=== PATIENT | male | born 1960 | race Caucasian/White ===

== ENCOUNTER 2016-07-02 18:12 | Emergency (ER) | payer SELFPAY ==
[~2016-07-02] VITALS: Ht 175.3 cm; Wt 80.0 kg
[~2016-07-02 18:12] MED LIST: DILA100C PO; LEVE500 PO
[2016-07-02 19:02] VITALS: BP 138/52; PULSE 60; RESP 14; TEMP 98.9; O2SAT 97
--- NOTE | 2016-07-02 20:10 | PD ---
HPI Chief Complaint: Alcohol/Drug Intoxication Time Seen by Provider: 19:40 Travel History International Travel<30 days: No Contact w/Intl Traveler<30days: No Traveled to known affect area: No History of Present Illness HPI Patient is a 56-year-old male who presents emergency department for alcohol intoxication. According to EMS the patient was found on the ground, by police, intoxicated. Therefore, they called EMS to bring the patient to the emergency department. The patient does admit to drinking alcohol earlier today , was unable to quantify the amount of alcohol. He denies any physical complaints. He denies any suicidal or homicidal ideation. He denies any hallucinations or delusions. PFSH Past Medical History Arthritis: Yes (FEET AND HANDS) Asthma: No Autoimmune Disease: No Blood Disorders: No Anxiety: No Depression: No Heart Rhythm Problems: No Cancer: No Cardiovascular Problems: Yes High Cholesterol: No Chemotherapy: No Chest Pain: No Congestive Heart Failure: No COPD: No Cerebrovascular Accident: No Diabetes: No Diminished Hearing: No Endocrine: No Gastrointestinal Disorders: No GERD: No Glaucoma: No Genitourinary: No Headaches: No Hepatitis: No Hiatal Hernia: No Hypertension: Yes Immune Disorder: No Kidney Stones: No Musculoskeletal: Yes Neurologic: Yes (TBI 1999) Psychiatric: No Reproductive: No Respiratory: No Immunizations Current: Yes Migraines: No Myocardial Infarction: No Radiation Therapy: No Renal Failure: No Seizures: Yes (ETOH WITHDRAWL ) Sickle Cell Disease: No Sleep Apnea: No Thyroid Disease: No Ulcer: No Past Surgical History Abdominal Surgery: No AICD: No Appendectomy: Yes Arteriovenous Shunt: Yes Cardiac Surgery: No Cholecystectomy: No Ear Surgery: No Endocrine Surgery: No Eye Surgery: No Genitourinary Surgery: No Gynecologic Surgery: No Insulin Pump: No Joint Replacement: No Neurologic Surgery: No Oral Surgery: Yes (FX JAW X 2 2001 AND 2006) Pacemaker: No Thoracic Surgery: No Tonsillectomy: Yes Other Surgery: Yes Social History Alcohol Use: No Tobacco Use: Yes (1 PACK PER DAY) Substance Use: No Allergies-Medications (Allergen,Severity, Reaction): Coded Allergies: No Known Allergies (Verified , 12/28/15) Reported Meds & Prescriptions Reported Meds & Active Scripts Active Keppra (Levetiracetam) 500 Mg Tab 500 Mg PO BID Reported Dilantin (Phenytoin Extended) 100 Mg Cap Unknown Dose PO BID Review of Systems Except as stated in HPI: all other systems reviewed are Neg HENT: No: Lightheadedness Cardiovascular: No: Chest Pain or Discomfort Respiratory: No: Shortness of Breath Gastrointestinal: No: Nausea, Vomiting, Abdominal Pain Neurologic: Positive: Seizures, No: Headache, Change in Mentation Psychiatric: Positive: Substance Abuse (alcohol abuse), No: Suicidal Ideations , Homicidal Ideation Physical Exam Narrative GENERAL: Awake, alert, pleasant 56-year-old male who appears his stated age and is in no acute respiratory distress. SKIN: Warm and dry. HEAD: Atraumatic. Normocephalic. No visible hematoma. EYES: Pupils equal and round. No scleral icterus. ENT: No nasal bleeding or discharge. Mucous membranes pink and moist. Breath smells of alcohol. NECK: Trachea midline. No JVD. CARDIOVASCULAR: Regular rate and rhythm. No murmur appreciated. RESPIRATORY: No accessory muscle use. Clear to auscultation. Breath sounds equal bilaterally. GASTROINTESTINAL: Abdomen soft, non-tender, nondistended. No rebound tenderness. MUSCULOSKELETAL: No obvious deformities. No clubbing. No cyanosis. No edema. NEUROLOGICAL: Awake and alert. No obvious cranial nerve deficits. Motor grossly within normal limits. Normal speech. Nonfocal. PSYCHIATRIC: Appropriate mood and affect; insight and judgment normal. Data Data Last Documented VS Vital Signs Date Time Temp Pulse Resp B/P Pulse Ox O2 Delivery O2 Flow Rate FiO2 07/03/16 06:52 63 16 110/72 95 Room Air 07/02/16 19:02 98.9 Orders Basic Metabolic Panel (Bmp) (07/02/16 19:40) Alcohol (Ethanol) (07/02/16 19:40) Phenytoin (Dilantin) (07/02/16 20:10) Ct Brain W/O Iv Contrast(Rout) (07/02/16 ) Lorazepam Inj (Ativan Inj) (07/03/16 00:00) ^ Sitter (07/02/16 23:59) Restraints Non-Violent ERICA.Q3H (07/03/16 04:30) Labs Laboratory Tests Test 07/02/16 20:20 Sodium Level 142 MEQ/L Potassium Level 4.2 MEQ/L Chloride Level 108 MEQ/L Carbon Dioxide Level 25.6 MEQ/L Anion Gap 8 MEQ/L Blood Urea Nitrogen 7 MG/DL Creatinine 0.96 MG/DL Estimat Glomerular Filtration 81 ML/MIN Rate Random Glucose 89 MG/DL Calcium Level 8.9 MG/DL Phenytoin (Dilantin) Level LESS THAN 0.4 MCG/ML Ethyl Alcohol Level 342 MG/DL MDM Medical Decision Making Medical Screen Exam Complete: Yes Emergency Medical Condition: Yes Medical Record Reviewed: Yes Interpretation(s) CT the brain reveals chronic changes, no acute findings. Laboratory Tests Test 07/02/16 20:20 Sodium Level 142 MEQ/L Potassium Level 4.2 MEQ/L Chloride Level 108 MEQ/L Carbon Dioxide Level 25.6 MEQ/L Anion Gap 8 MEQ/L Blood Urea Nitrogen 7 MG/DL Creatinine 0.96 MG/DL Estimat Glomerular Filtration 81 ML/MIN Rate Random Glucose 89 MG/DL Calcium Level 8.9 MG/DL Phenytoin (Dilantin) Level LESS THAN 0.4 MCG/ML Ethyl Alcohol Level 342 MG/DL Differential Diagnosis Differential diagnosis includes alcohol intoxication, Dilantin toxicity, hyponatremia, intracranial hemorrhage, polysubstance abuse, delirium. Narrative Course Labs were drawn and sent. Alcohol level, BMP, Dilantin level were sent to lab. The patient was monitored in the emergency department. I reviewed the patient 's EMR, he does have a history of subdural hemorrhage in the past, therefore, CT of the brain was ordered. CT brain is negative. Alcohol level is 342. Patient be discharged when he is able to ambulate and has a safe disposition home. Diagnosis Primary Impression: Alcohol intoxication Qualified Code: F10.120 - Alcohol intoxication, uncomplicated Patient Instructions: General Instructions Additional Instructions: Decrease alcohol intake. Follow-up with a primary physician. Return if symptoms worsen or progress. Med/Other Pt SpecificInfo: No Change to Meds Disposition: 01 DISCHARGE HOME Condition: Stable Burak Murillo MD Jul 02, 2016 20:10
--- NOTE | 2016-07-02 20:53 | RADRPT ---
EXAM DATE/TIME: 07/02/2016 20:26 [facility] COMPARISON: No previous studies available for comparison. INDICATIONS : Altered mental status; ETOH RADIATION DOSE: 56.35 CTDIvol (mGy) MEDICAL HISTORY : Hypertension. SURGICAL HISTORY : Shunt ENCOUNTER: Initial ACUITY: 1 day PAIN SCALE: Non-responsive LOCATION: cranial TECHNIQUE: Multiple contiguous axial images were obtained of the head. Using automated exposure control and adj ustment of the mA and/or kV according to patient size, radiation dose was kept as low as reasonably a chievable to obtain optimal diagnostic quality images. FINDINGS: Comparison is April 2016. There are dense calcifications in the basal ganglia and dentate nuclei b ilaterally. Stable encephalomalacia noted in the frontal lobes. No intracranial mass, hemorrhage or s hift. No hydrocephalus. No abnormal extra-axial fluid collections. Healing left maxillary sinus fract ure and nasal bone fractures. CONCLUSION: 1. No acute intracranial abnormalities. Stable intracranial calcifications as above and frontal encep halomalacia. Sd Vazquez MD on July 02, 2016 at 20:50 Board Certified Radiologist. This report was verified electronically.
[2016-07-02 21:36] LABS: BICARBONATE 25.6 MEQ/L (21.0-32.0); POTASSIUM 4.2 MEQ/L (3.5-5.1)
[2016-07-03] MEDS ORDERED: LORazepam 2 MG/ML VIAL IM ONE
--- NOTE | 2016-07-03 00:03 | PD ---
Physical Exam Time Seen by Provider: 00:00 Data Data Last Documented VS Vital Signs Date Time Temp Pulse Resp B/P Pulse Ox O2 Delivery O2 Flow Rate FiO2 07/03/16 06:52 63 16 110/72 95 Room Air 07/02/16 19:02 98.9 Orders Basic Metabolic Panel (Bmp) (07/02/16 19:40) Alcohol (Ethanol) (07/02/16 19:40) Phenytoin (Dilantin) (07/02/16 20:10) Ct Brain W/O Iv Contrast(Rout) (07/02/16 ) Lorazepam Inj (Ativan Inj) (07/03/16 00:00) ^ Sitter (07/02/16 23:59) Restraints Non-Violent ERICA.Q3H (07/03/16 04:30) Labs Laboratory Tests Test 07/02/16 20:20 Sodium Level 142 MEQ/L Potassium Level 4.2 MEQ/L Chloride Level 108 MEQ/L Carbon Dioxide Level 25.6 MEQ/L Anion Gap 8 MEQ/L Blood Urea Nitrogen 7 MG/DL Creatinine 0.96 MG/DL Estimat Glomerular Filtration 81 ML/MIN Rate Random Glucose 89 MG/DL Calcium Level 8.9 MG/DL Phenytoin (Dilantin) Level LESS THAN 0.4 MCG/ML Ethyl Alcohol Level 342 MG/DL MDM Medical Record Reviewed: Yes Supervised Visit with ROGER: No Narrative Course I have been asked to come and examine this patient for increasingly combative behavior. This patient was previously seen by Dr. Murillo for alcohol intoxication. His lab work and imaging studies have been reviewed. His alcohol level is 342. His CT of the brain reveals no acute abnormalities. On examination he is very hostile and aggressive necessitating the use of restraints. He will be given Ativan. A sitter has been ordered. The patient will be monitored closely. This patient eventually calmed down and he is going to be discharged when he is clinically sober. Diagnosis Primary Impression: Alcohol intoxication Qualified Code: F10.120 - Alcohol intoxication, uncomplicated Additional Instruction: Decrease alcohol intake. Follow-up with a primary physician. Return if symptoms worsen or progress. Disposition: 01 DISCHARGE HOME Condition: Stable Salomon Wilkinson Jul 03, 2016 00:03
[2016-07-03 00:29] VITALS: BP 112/66; PULSE 66; RESP 16; O2SAT 97
[2016-07-03 06:52] VITALS: BP 110/72; PULSE 63; RESP 16; O2SAT 95
== END 2016-07-03 10:11 | disposition home or self-care (01) ==
LOC: NEDAMB 18:12 → NEPA 07-03 10:11
DX: F10.120 Alcohol abuse with intoxication, uncomplicated (principal); Y90.8 Blood alcohol level of 240 mg/100 ml or more
CPT/HCPCS: 70450; 80048; 80185; 80320; 96372; 99285; J2060

== ENCOUNTER 2016-07-09 15:27 | Emergency (ER) | payer SELFPAY ==
[~2016-07-09] VITALS: Ht 165.1 cm; Wt 70.0 kg
[2016-07-09] MEDS ORDERED: SODIUM CHLORIDE 0.9% FLUSH 5 ML FLUSH IVF PRN (15:30)
[2016-07-09] MEDS ORDERED: LORazepam 2 MG/ML VIAL IVS ONE (15:30)
[2016-07-09 15:33] VITALS: BP 136/71; PULSE 70; RESP 18; TEMP 98.2; O2SAT 98
--- NOTE | 2016-07-09 15:37 | PD ---
HPI Chief Complaint: Seizure Time Seen by Provider: 15:30 Travel History International Travel<30 days: No Contact w/Intl Traveler<30days: No History of Present Illness HPI Patient is a 56-year-old male alcoholic frequent or ER here for reported seizure. Patient was reportedly riding a city bus when bystanders stated that he had a several minute generalized tonic-clonic type seizure. He shouldn't somewhat cantankerous for EMS consistent with postictal phase initially not alert to himself or place but normalizing throughout transport. Blood glucose in the high 60s. Patient does not know why he is here and denies any complaints. He does not believe he's had seizures before, but per chart review he has certainly had seizures previously. He has been chronically noncompliant with phenytoin. PFSH Past Medical History Arthritis: Yes (FEET AND HANDS) Asthma: No Autoimmune Disease: No Blood Disorders: No Anxiety: No Depression: No Heart Rhythm Problems: No Cancer: No Cardiovascular Problems: Yes High Cholesterol: No Chemotherapy: No Chest Pain: No Congestive Heart Failure: No COPD: No Cerebrovascular Accident: No Diabetes: No Diminished Hearing: No Endocrine: No Gastrointestinal Disorders: No GERD: No Glaucoma: No Genitourinary: No Headaches: No Hepatitis: No Hiatal Hernia: No Hypertension: Yes Immune Disorder: No Kidney Stones: No Musculoskeletal: Yes Neurologic: Yes (TBI 1999) Psychiatric: No Reproductive: No Respiratory: No Immunizations Current: Yes Migraines: No Myocardial Infarction: No Radiation Therapy: No Renal Failure: No Seizures: Yes (ETOH WITHDRAWL ) Sickle Cell Disease: No Sleep Apnea: No Thyroid Disease: No Ulcer: No Past Surgical History Abdominal Surgery: No AICD: No Appendectomy: Yes Arteriovenous Shunt: Yes Cardiac Surgery: No Cholecystectomy: No Ear Surgery: No Endocrine Surgery: No Eye Surgery: No Genitourinary Surgery: No Gynecologic Surgery: No Insulin Pump: No Joint Replacement: No Neurologic Surgery: No Oral Surgery: Yes (FX JAW X 2 2001 AND 2006) Pacemaker: No Thoracic Surgery: No Tonsillectomy: Yes Other Surgery: Yes Social History Alcohol Use: Yes Tobacco Use: Yes (1 PACK PER DAY) Substance Use: No (DENIES) Allergies-Medications (Allergen,Severity, Reaction): Coded Allergies: No Known Allergies (Verified , 07/09/16) Reported Meds & Prescriptions Reported Meds & Active Scripts Active Keppra (Levetiracetam) 500 Mg Tab 500 Mg PO BID Reported Dilantin (Phenytoin Extended) 100 Mg Cap Unknown Dose PO BID Review of Systems ROS Limitations: Altered Mental Status, Poor Historian Physical Exam Exam Limitations: Altered Mental Status, Poor Historian Narrative GENERAL: middle-aged male disheveled, smelling of alcohol in no acute distress SKIN: Warm and dry. HEAD: Atraumatic. Normocephalic. EYES: Pupils equal and round. No scleral icterus. No injection or drainage. ENT: No nasal bleeding or discharge. Mucous membranes pink and moist.no bites the tongue. NECK: supple CARDIOVASCULAR: Regular rate and rhythm. No murmur appreciated. RESPIRATORY: No accessory muscle use. Clear to auscultation. Breath sounds equal bilaterally. GASTROINTESTINAL: Abdomen soft, non-tender, nondistended. MUSCULOSKELETAL: No obvious deformities. No edema. NEUROLOGICAL: Awake and alert3 but confused about historical events. No tremor. No obvious cranial nerve deficits. Motor grossly within normal limits. Normal speech. Data Data Last Documented VS Vital Signs Date Time Temp Pulse Resp B/P Pulse Ox O2 Delivery O2 Flow Rate FiO2 07/09/16 15:40 84 16 98 Room Air 07/09/16 15:33 98.2 136/71 Orders Complete Blood Count With Diff (07/09/16 15:30) Basic Metabolic Panel (Bmp) (07/09/16 15:30) Alcohol (Ethanol) (07/09/16 15:30) Ecg Monitoring (07/09/16 15:30) Iv Access Insert/Monitor (07/09/16 15:30) Oximetry (07/09/16 15:30) Sodium Chloride 0.9% Flush (Ns Flush) (07/09/16 15:30) Lorazepam Inj (Ativan Inj) (07/09/16 15:30) Chlordiazepoxide (Librium) (07/09/16 16:30) Labs Laboratory Tests Test 07/09/16 15:30 White Blood Count 5.3 TH/MM3 Red Blood Count 4.77 MIL/MM3 Hemoglobin 12.3 GM/DL Hematocrit 38.0 % Mean Corpuscular Volume 79.7 FL Mean Corpuscular Hemoglobin 25.9 PG Mean Corpuscular Hemoglobin 32.5 % Concent Red Cell Distribution Width 20.2 % Platelet Count 221 TH/MM3 Mean Platelet Volume 8.2 FL Neutrophils (%) (Auto) 65.8 % Lymphocytes (%) (Auto) 25.0 % Monocytes (%) (Auto) 6.5 % Eosinophils (%) (Auto) 2.2 % Basophils (%) (Auto) 0.5 % Neutrophils # (Auto) 3.5 TH/MM3 Lymphocytes # (Auto) 1.3 TH/MM3 Monocytes # (Auto) 0.3 TH/MM3 Eosinophils # (Auto) 0.1 TH/MM3 Basophils # (Auto) 0.0 TH/MM3 CBC Comment DIFF FINAL Differential Comment Sodium Level 137 MEQ/L Potassium Level 4.1 MEQ/L Chloride Level 102 MEQ/L Carbon Dioxide Level 27.1 MEQ/L Anion Gap 8 MEQ/L Blood Urea Nitrogen 9 MG/DL Creatinine 0.97 MG/DL Estimat Glomerular Filtration 80 ML/MIN Rate Random Glucose 93 MG/DL Calcium Level 9.1 MG/DL Ethyl Alcohol Level LESS THAN 3 MG/DL MDM Medical Decision Making Medical Screen Exam Complete: Yes Emergency Medical Condition: Yes Medical Record Reviewed: Yes Differential Diagnosis 56-year-old male with history of alcoholism here after reported seizure on a city bus. Differential includes seizure, medication nonadherence, breakthrough seizure, alcohol withdrawal. No evidence of closed head injury. Narrative Course Patient placed on monitor, IV established and blood obtained. Patient given 1 mg Ativan. CBC, BMP, blood alcohol level unremarkable. Patient was given Librium. Return to baseline mental status, able ambulate to bathroom without difficulty and will be discharged home. Diagnosis Primary Impression: Seizure disorder Referrals: [facility] Primary Care Physician call for appointment Med/Other Pt SpecificInfo: No Change to Meds Disposition: 01 DISCHARGE HOME Condition: Stable Nidhi Haddad MD Jul 09, 2016 15:36
[2016-07-09 15:40] VITALS: RESP 16; O2SAT 97
[2016-07-09 15:58] LABS: AUTOMATED NEUTROPHIL # 3.5 TH/MM3 (1.8-7.7); BASOPHIL % 0.5 % (0.0-2.0); EOSINOPHIL # 0.1 TH/MM3 (0-0.4); EOSINOPHIL % 2.2 % (0.0-4.0); HEMO FLAGS DIFF FINAL; LYMPHOCYTE # 1.3 TH/MM3 (1.0-4.8); MEAN CELL VOLUME 79.7 FL (80.0-100.0); MEAN CORPUSCULAR HEMOGLOBIN 25.9 PG (27.0-34.0); MEAN CORPUSCULAR HGB CONC 32.5 % (32.0-36.0); MONO % 6.5 % (0.0-8.0); NEUT % 65.8 % (16.0-70.0); PLATELET COUNT 221 TH/MM3 (150-450); RED BLOOD COUNT 4.77 MIL/MM3 (4.50-5.90); RED CELL DISTRIBUTION WIDTH 20.2 % (11.6-17.2); WHITE BLOOD COUNT 5.3 TH/MM3 (4.0-11.0)
[2016-07-09 16:10] LABS: ANION GAP 8 MEQ/L (5-15); BICARBONATE 27.1 MEQ/L (21.0-32.0); BLOOD UREA NITROGEN 9 MG/DL (7-18); CHLORIDE 102 MEQ/L (98-107); GLOMERULAR FILTRATION RATE 80 ML/MIN (>89); POTASSIUM 4.1 MEQ/L (3.5-5.1); SODIUM (NA) 137 MEQ/L (136-145)
[2016-07-09] MEDS ORDERED: chlordiazePOXIDE 25 MG CAP PO ONE (16:30)
== END 2016-07-09 17:01 | disposition home or self-care (01) ==
LOC: NEPE 15:27
DX: G40.909 Epilepsy, unspecified, not intractable, without status epilepticus (principal)
CPT/HCPCS: 80048; 80320; 85025; 96374; 99284; J2060

== ENCOUNTER 2016-12-03 14:23 | Emergency (ER) | payer SELFPAY ==
--- NOTE | 2016-12-03 14:47 | PD ---
HPI Chief Complaint: altered mental status. Time Seen by Provider: 14:44 Travel History International Travel<30 days: No Contact w/Intl Traveler<30days: No Traveled to known affect area: No History of Present Illness HPI 56-year-old male brought in by EMS for question of altered mental status. Patient refused to answer any questions EMS but upon arrival here to the emergency department he is acting including normal and wishes to depart the department. He complains of no medical issues. He was transported as people felt that he was acting strangely at a local store. He has no known drug allergies. [facility] Past Medical History Medical History: Unable to Obtain Arthritis: Yes (FEET AND HANDS) Asthma: No Autoimmune Disease: No Blood Disorders: No Anxiety: No Depression: No Heart Rhythm Problems: No Cancer: No Cardiovascular Problems: Yes High Cholesterol: No Chemotherapy: No Chest Pain: No Congestive Heart Failure: No COPD: No Cerebrovascular Accident: No Diabetes: No Diminished Hearing: No Endocrine: No Gastrointestinal Disorders: No GERD: No Glaucoma: No Genitourinary: No Headaches: No Hepatitis: No Hiatal Hernia: No Hypertension: Yes Immune Disorder: No Kidney Stones: No Musculoskeletal: Yes Neurologic: Yes (TBI 1999) Psychiatric: No Reproductive: No Respiratory: No Immunizations Current: Yes Migraines: No Myocardial Infarction: No Radiation Therapy: No Renal Failure: No Seizures: Yes (ETOH WITHDRAWL ) Sickle Cell Disease: No Sleep Apnea: No Thyroid Disease: No Ulcer: No Past Surgical History Abdominal Surgery: No AICD: No Appendectomy: Yes Arteriovenous Shunt: Yes Cardiac Surgery: No Cholecystectomy: No Ear Surgery: No Endocrine Surgery: No Eye Surgery: No Genitourinary Surgery: No Gynecologic Surgery: No Insulin Pump: No Joint Replacement: No Neurologic Surgery: No Oral Surgery: Yes (FX JAW X 2 2001 AND 2006) Pacemaker: No Thoracic Surgery: No Tonsillectomy: Yes Other Surgery: Yes Social History Alcohol Use: Yes Tobacco Use: Yes (1 PACK PER DAY) Substance Use: No (DENIES) Allergies-Medications (Allergen,Severity, Reaction): Coded Allergies: No Known Allergies (Verified , 07/09/16) Reported Meds & Prescriptions Reported Meds & Active Scripts Active Keppra (Levetiracetam) 500 Mg Tab 500 Mg PO BID Reported Dilantin (Phenytoin Extended) 100 Mg Cap Unknown Dose PO BID Review of Systems ROS Limitations: Uncooperative Except as stated in HPI: all other systems reviewed are Neg General / Constitutional: No: Fever Eyes: No: Visual changes HENT: No: Headaches Cardiovascular: No: Chest Pain or Discomfort Respiratory: No: Shortness of Breath Gastrointestinal: No: Abdominal Pain Genitourinary: No: Dysuria Musculoskeletal: No: Pain Skin: No Rash Neurologic: No: Weakness Psychiatric: No: Depression Endocrine: No: Polydipsia Hematologic/Lymphatic: No: Easy Bruising Physical Exam Exam Limitations: Uncooperative Narrative GENERAL: Patient appears in no acute distress. SKIN: Warm and dry. Color. Normal turgor. HEAD: Atraumatic. Normocephalic. EYES: Pupils equal and round. No scleral icterus. No injection or drainage. ENT: No nasal bleeding or discharge. Mucous membranes pink and moist. Pharynx is clear. NECK: Trachea midline. Supple. CARDIOVASCULAR: Regular rate and rhythm. RESPIRATORY: No accessory muscle use. Clear to auscultation. Breath sounds equal bilaterally. MUSCULOSKELETAL: Extremities without clubbing, cyanosis, or edema. No obvious deformities. NEUROLOGICAL: Awake and alert. No obvious cranial nerve deficits. Motor grossly within normal limits. Five out of 5 muscle strength in the arms and legs. Normal speech. PSYCHIATRIC: Appropriate mood and affect; insight and judgment normal. MDM Medical Decision Making Medical Screen Exam Complete: Yes Emergency Medical Condition: Yes Differential Diagnosis Altered mental status. Uncooperative. Belligerent. Narrative Course Patient does not want to have any medical workup performed. He is asking to leave AMA. AMA paperwork was prepared the patient is discharged AMA. Procedures EKG Not Completed: Patient Refuses Diagnosis Primary Impression: Left against medical advice Disposition: 07 AGAINST MEDICAL ADVICE Condition: Stable Akshat Lopez Dec 03, 2016 14:47
== END 2016-12-03 14:57 | disposition left against medical advice (07) ==
LOC: NEDAMB 14:23
DX: R41.82 Altered mental status, unspecified (principal); I10 Essential (primary) hypertension; F17.210 Nicotine dependence, cigarettes, uncomplicated
CPT/HCPCS: 99283

== ENCOUNTER 2017-01-08 20:44 | Emergency (ER) | payer SELFPAY ==
[2017-01-08 21:08] VITALS: BP 116/57; PULSE 83; RESP 18; TEMP 98.6; O2SAT 95
[2017-01-08] MEDS ORDERED: SODIUM CHLORIDE 0.9% FLUSH 10 ML FLUSH IV FLUSH PRN (21:15)
--- NOTE | 2017-01-08 21:16 | PD ---
HPI Chief Complaint: Alcohol/Drug Intoxication Time Seen by Provider: 21:12 Travel History International Travel<30 days: No Contact w/Intl Traveler<30days: No History of Present Illness HPI Patient is brought in by EMS after having a witnessed fall and alcohol intoxication. There was no reported loss of consciousness. Patient denies any complaints at this time. Patient appears intoxicated and is not very good historian. Patient is been here in the past multiple times for intoxication as well as seizure disorder. It is noted that the patient is noncompliant with his seizure medication. Upon reviewing patient's chart is noted his tetanus shot is up-to-date. PFSH Past Medical History Arthritis: Yes (FEET AND HANDS) Asthma: No Autoimmune Disease: No Blood Disorders: No Anxiety: No Depression: No Heart Rhythm Problems: No Cancer: No Cardiovascular Problems: Yes High Cholesterol: No Chemotherapy: No Chest Pain: No Congestive Heart Failure: No COPD: No Cerebrovascular Accident: No Diabetes: No Diminished Hearing: No Endocrine: No Gastrointestinal Disorders: No GERD: No Glaucoma: No Genitourinary: No Headaches: No Hepatitis: No Hiatal Hernia: No Hypertension: Yes Immune Disorder: No Kidney Stones: No Musculoskeletal: Yes Neurologic: Yes (TBI 1999) Psychiatric: No Reproductive: No Respiratory: No Immunizations Current: Yes Migraines: No Myocardial Infarction: No Radiation Therapy: No Renal Failure: No Seizures: Yes (ETOH WITHDRAWL ) Sickle Cell Disease: No Sleep Apnea: No Thyroid Disease: No Ulcer: No Past Surgical History Abdominal Surgery: No AICD: No Appendectomy: Yes Arteriovenous Shunt: Yes Cardiac Surgery: No Cholecystectomy: No Ear Surgery: No Endocrine Surgery: No Eye Surgery: No Genitourinary Surgery: No Gynecologic Surgery: No Insulin Pump: No Joint Replacement: No Neurologic Surgery: No Oral Surgery: Yes (FX JAW X 2 2001 AND 2006) Pacemaker: No Thoracic Surgery: No Tonsillectomy: Yes Other Surgery: Yes Social History Alcohol Use: Yes Tobacco Use: Yes (1 PACK PER DAY) Substance Use: No (DENIES) Allergies-Medications (Allergen,Severity, Reaction): Coded Allergies: No Known Allergies (Verified , 01/08/17) Reported Meds & Prescriptions Reported Meds & Active Scripts Active Keppra (Levetiracetam) 500 Mg Tab 500 Mg PO BID Reported Dilantin (Phenytoin Extended) 100 Mg Cap Unknown Dose PO BID Review of Systems ROS Limitations: Intoxication Except as stated in HPI: all other systems reviewed are Neg Physical Exam Exam Limitations: Intoxication Narrative GENERAL: Well-developed, well nourished, in no acute distress, and non-ill appearing. SKIN: Small superficial abrasion noted over left frontal lobe scalp. HEAD: Atraumatic. Normocephalic. EYES: Pupils equal and round. EOMI. No scleral icterus. No injection or drainage. ENT: No nasal bleeding or discharge. Mucous membranes pink and moist. NECK: Trachea midline. Supple. No nuclear rigidity. CARDIOVASCULAR: Regular rate and rhythm. No murmur appreciated. RESPIRATORY: No accessory muscle use. No respiratory distress. Clear to auscultation. Breath sounds equal bilaterally. MUSCULOSKELETAL: No obvious deformities. No clubbing. No cyanosis. No edema. Full range of motion. NEUROLOGICAL: Awake and alert. No obvious cranial nerve deficits. Motor grossly within normal limits. Slurred speech. Data Data Last Documented VS Vital Signs Date Time Temp Pulse Resp B/P Pulse Ox O2 Delivery O2 Flow Rate FiO2 01/09/17 07:08 65 18 94 01/09/17 07:08 111/60 Room Air 01/08/17 21:08 98.6 Orders Basic Metabolic Panel (Bmp) (01/08/17 21:09) Iv Access Insert/Monitor (01/08/17 21:09) Ecg Monitoring (01/08/17 21:09) Oximetry (01/08/17 21:09) Sodium Chloride 0.9% Flush (Ns Flush) (01/08/17 21:15) Phenytoin (Dilantin) (01/08/17 21:09) Ct Brain W/O Iv Contrast(Rout) (01/08/17 ) Ct Cerv Spine W/O Contrast (01/08/17 ) Apply Cervical Collar (01/08/17 21:09) Alcohol (Ethanol) (01/08/17 21:09) Wound Care (01/08/17 21:16) Lorazepam (Ativan) (01/09/17 02:00) Labs Laboratory Tests Test 01/08/17 21:20 Sodium Level 143 MEQ/L Potassium Level 3.5 MEQ/L Chloride Level 111 MEQ/L Carbon Dioxide Level 23.3 MEQ/L Anion Gap 9 MEQ/L Blood Urea Nitrogen 7 MG/DL Creatinine 1.00 MG/DL Estimat Glomerular Filtration 77 ML/MIN Rate Random Glucose 87 MG/DL Calcium Level 8.8 MG/DL Phenytoin (Dilantin) Level 0.6 MCG/ML Ethyl Alcohol Level 277 MG/DL MDM Medical Decision Making Medical Screen Exam Complete: Yes Emergency Medical Condition: Yes Interpretation(s) CT the head read by the radiologist shows: Stable chronic changes. CT cervical spine read by the radiologist shows: Slight neural frontal compromise bilateral C6-C7. Differential Diagnosis Closed head injury, intracranial hemorrhage, fracture, strain, electrolyte abnormality, supratherapeutic versus subtherapeutic Dilantin, other Narrative Course Patient was seen and examined. Patient will be monitored in the emergency department until clinically sober and able to ambulate on their own or until a sober responsible adult comes to pick them up. RN is aware of this. Patient is been monitored throughout the emergency department continues to be alert to person but not place or time. Is unclear if this is his new baseline or if this secondary to the alcohol intoxication. Patient will be reassessed by oncoming provider prior to discharge and/or family member coming in that can verify this is patient's baseline prior to discharge. RN is aware of this. Diagnosis Primary Impression: Closed head injury Qualified Code: S09.90XA - Closed head injury, initial encounter Additional Impressions: Abrasion Alcohol intoxication Qualified Code: F10.920 - Alcohol intoxication, uncomplicated Referrals: Primary Care Physician [facility] Patient Instructions: Abrasion (ED), Alcohol Intoxication (ED), General Instructions, Head Injury (ED) Additional Instructions: Follow-up with your primary care physician for reevaluation. Follow-up through primary care doctor and/or Anthony Vivas for alcohol detoxification. Stop drinking. Keep wound dry and clean as possible using soap and water. Use Neosporin to promote healing. Return to the emergency department if symptoms get worse. Disposition: 01 DISCHARGE HOME Condition: Stable John Chance Jan 08, 2017 21:16
--- NOTE | 2017-01-08 22:05 | RADRPT ---
EXAM DATE/TIME: 01/08/2017 21:44 [facility] COMPARISON: CT BRAIN W/O CONTRAST, July 02, 2016, 20:26. INDICATIONS : Altered mental status. RADIATION DOSE: 33.90 CTDIvol (mGy) MEDICAL HISTORY : Cardiovascular disease. Seizures. SURGICAL HISTORY : Appendectomy. ENCOUNTER: Initial ACUITY: 1 day PAIN SCALE: Non-responsive LOCATION: cranial TECHNIQUE: Multiple contiguous axial images were obtained of the head. Using automated exposure control and adj ustment of the mA and/or kV according to patient size, radiation dose was kept as low as reasonably a chievable to obtain optimal diagnostic quality images. DICOM format image data is available electro nically for review and comparison. FINDINGS: There is no evidence for intracranial hemorrhage, mass effect, mass lesions, or edema. The visualize d bony structures appear intact. Moderate degree of brain atrophy is seen. Moderate periventricular white matter changes are seen nonspecific mostly consistent with chronic small vessel ischemic change s. There are no signs of acute infarction for technique. There is encephalomalacia involving bilater al frontal lobes and calcifications of dentate gyri and basal ganglia chronic in nature. There is als o encephalomalacia in left parietal lobe. CONCLUSION: Stable chronic changes. Danielle Gabriel MD on January 08, 2017 at 22:01 Board Certified Radiologist. This report was verified electronically.
--- NOTE | 2017-01-08 22:12 | RADRPT ---
EXAM DATE/TIME: 01/08/2017 21:44 [facility] COMPARISON: CT CERVICAL SPINE W/O CONTRAST, March 11, 2015, 1:08. INDICATIONS : Trauma; fall. ETOH. RADIATION DOSE: 20.31 CTDIvol (mGy) ; Patient motion MEDICAL HISTORY : Cardiovascular disease. Seizures. SURGICAL HISTORY : Appendectomy. AV shunt ENCOUNTER: Initial ACUITY: 1 day PAIN SCALE: Non-responsive LOCATION: neck TECHNIQUE: Volumetric scanning of the cervical spine was performed. Multiplanar reconstructions in the sagittal, coronal and oblique axial planes were performed. Using automated exposure control and adjustment o f the mA and/or kV according to patient size, radiation dose was kept as low as reasonably achievable to obtain optimal diagnostic quality images. DICOM format image data is available electronically f or review and comparison. FINDINGS: No evidence of subluxation. No definite fracture is seen for technique. There are large floating osteophytes from C3 all the way down to C6-7. C2-C3: There is no evidence for any significant compromise to the thecal sac, or the exiting nerve roots. N o appreciable thecal sac stenosis is seen. The neural foramina and lateral recess appear patent bila terally. C3-C4: Slight degenarative changes are seen within the disc space and facets. Slight bulging disc and hypert rophic changes are seen with indentation on the thecal sac and no significant compromise to the theca l sac or the exiting nerve roots. C4-C5: Moderate degenarative changes are seen within the disc space and facets. Slight bulging disc and hype rtrophic changes are seen with indentation on the thecal sac and no significant compromise to the the rodrigo sac or the exiting nerve roots. C5-C6: Moderate degenarative changes are seen within the disc space and facets. There is bulging disc and hy pertrophic change protruding into bilateral lateral recess without any significant compromise to the exiting nerve roots. Slight bulging disc and hypertrophic changes are seen with indentation on the th ecal sac and no significant compromise to the thecal sac or the exiting nerve roots. C6-C7: There is slight neural foramina compromise bilaterally due to bulging disc and hypertrophic changes. There is bulging disc and hypertrophic change protruding into bilateral lateral recess without any si gnificant compromise to the exiting nerve roots. Slight bulging disc and hypertrophic changes are see n with indentation on the thecal sac and no significant compromise to the thecal sac. C7-T1: There is no evidence for any significant compromise to the thecal sac, or the exiting nerve roots. N o appreciable thecal sac stenosis is seen. The neural foramina and lateral recess appear patent bila terally. CONCLUSION: Slight neural frontal compromise bilateral C6-C7. KCharlie Gabriel MD on January 08, 2017 at 22:06 Board Certified Radiologist. This report was verified electronically.
[2017-01-08 22:24] LABS: BICARBONATE 23.3 MEQ/L (21.0-32.0); POTASSIUM 3.5 MEQ/L (3.5-5.1)
[2017-01-09] MEDS ORDERED: LORazepam 2 MG TAB PO ONE (02:00)
[2017-01-09 04:00] VITALS: BP 112/72; PULSE 78; RESP 18; O2SAT 97
[2017-01-09 07:08] VITALS: BP 111/60; PULSE 65; RESP 18; O2SAT 94
--- NOTE | 2017-01-09 07:25 | PD ---
Physical Exam Date Seen by Provider: Jan 09, 2017 Time Seen by Provider: 07:24 Narrative I was asked to resume care of this patient by Christopher Chance PA-C. Please refer to his HPI for full details on encounter. I personally know Mr. Doherty from the [facility], where I served as his primary care provider for a few years. He is a known alcoholic, with seizure disorder and baseline speech impediment. Patient has a speech issue where his words are always slurred and he is sometimes difficult to understand. I assessed him this morning and he is speaking and walking at his baseline level of functioning. He ambulated in the presence of myself, the nurse and the sitter. There are some social issues between him and family members. Our nurse is trying to reach out to his sister to pick him up from the hospital. Data Data Last Documented VS Vital Signs Date Time Temp Pulse Resp B/P Pulse Ox O2 Delivery O2 Flow Rate FiO2 01/09/17 07:08 65 18 94 01/09/17 07:08 111/60 Room Air 01/08/17 21:08 98.6 Orders Basic Metabolic Panel (Bmp) (01/08/17 21:09) Iv Access Insert/Monitor (01/08/17 21:09) Ecg Monitoring (01/08/17 21:09) Oximetry (01/08/17 21:09) Sodium Chloride 0.9% Flush (Ns Flush) (01/08/17 21:15) Phenytoin (Dilantin) (01/08/17 21:09) Ct Brain W/O Iv Contrast(Rout) (01/08/17 ) Ct Cerv Spine W/O Contrast (01/08/17 ) Apply Cervical Collar (01/08/17 21:09) Alcohol (Ethanol) (01/08/17 21:09) Wound Care (01/08/17 21:16) Lorazepam (Ativan) (01/09/17 02:00) Diet Regular Basic (01/09/17 Breakfast) Labs Laboratory Tests Test 01/08/17 21:20 Sodium Level 143 MEQ/L Potassium Level 3.5 MEQ/L Chloride Level 111 MEQ/L Carbon Dioxide Level 23.3 MEQ/L Anion Gap 9 MEQ/L Blood Urea Nitrogen 7 MG/DL Creatinine 1.00 MG/DL Estimat Glomerular Filtration 77 ML/MIN Rate Random Glucose 87 MG/DL Calcium Level 8.8 MG/DL Phenytoin (Dilantin) Level 0.6 MCG/ML Ethyl Alcohol Level 277 MG/DL [facility] Medical Record Reviewed: Yes Supervised Visit with ROGER: No Differential Diagnosis alcohol intoxication, speech impediment, alcohol abuse, skin abrasion Narrative Course Last Impressions Head CT 01/08/17 0000 Signed Impressions: Service Date/Time: Sunday, January 08, 2017 21:44 - CONCLUSION: Stable chronic changes. Danielle Gabriel MD Cervical Spine CT 01/08/17 0000 Signed Impressions: Service Date/Time: Sunday, January 08, 2017 21:44 - CONCLUSION: Slight neural frontal compromise bilateral C6-C7. Danielle Gabriel MD Laboratory Tests Test 01/08/17 21:20 Sodium Level 143 MEQ/L Potassium Level 3.5 MEQ/L Chloride Level 111 MEQ/L Carbon Dioxide Level 23.3 MEQ/L Anion Gap 9 MEQ/L Blood Urea Nitrogen 7 MG/DL Creatinine 1.00 MG/DL Estimat Glomerular Filtration 77 ML/MIN Rate Random Glucose 87 MG/DL Calcium Level 8.8 MG/DL Phenytoin (Dilantin) Level 0.6 MCG/ML Ethyl Alcohol Level 277 MG/DL I have reviewed all of the results. I requested a breakfast tray, oral hydration , contact with family members and discharge. Patient is at his normal level of functioning from my prior experience with him in the community clinic. I had a discussion regarding etoh cessation/abuse. I encouraged him to seek help. He has not been to the clinic in quite some time and his last visit was actually with me. I encouraged him to look into other community resources for assistance. [id number]: patient able to walk, tie his shoe, he has a bus pass. He will have some breakfast and then be discharged. 0830: discussed with Caryn NOLASCO, patient asking to go home. He ate, feels better. Stable for discharge. Patient verbalized understanding of instructions, questions were answered, and thanked me for their care. I advised them if their condition worsens, please return to the nearest emergency room for further care. Diagnosis Primary Impression: Closed head injury Qualified Code: S09.90XA - Closed head injury, initial encounter Additional Impressions: Alcohol intoxication Qualified Code: F10.920 - Alcohol intoxication, uncomplicated Abrasion Referrals: [facility] Primary Care Physician [facility] Patient Instructions: General Instructions, Head Injury (ED), Alcohol Intoxication (ED), Abrasion (ED) Additional Instruction: Follow-up with your primary care physician for reevaluation. Follow-up through primary care doctor and/or Anthony Vivas for alcohol detoxification. Stop drinking. Keep wound dry and clean as possible using soap and water. Use Neosporin to promote healing. Return to the emergency department if symptoms get worse. Disposition: 01 DISCHARGE HOME Condition: Stable Stephanie Worley Jan 09, 2017 07:24
== END 2017-01-09 08:58 | disposition home or self-care (01) ==
LOC: NEPD 20:44
DX: S09.90XA Unspecified injury of head, initial encounter (principal); S00.01XA Abrasion of scalp, initial encounter; F10.920 Alcohol use, unspecified with intoxication, uncomplicated; I10 Essential (primary) hypertension; F17.200 Nicotine dependence, unspecified, uncomplicated; Z79.899 Other long term (current) drug therapy; Z87.39 Personal history of other diseases of the musculoskeletal system and connective tissue; Z86.79 Personal history of other diseases of the circulatory system; Z86.69 Personal history of other diseases of the nervous system and sense organs; W19.XXXA Unspecified fall, initial encounter
CPT/HCPCS: 70450; 72125; 80048; 80185; 80307; 99285

== ENCOUNTER 2017-01-18 14:18 | Emergency (ER) | payer SELFPAY ==
[~2017-01-18] VITALS: Ht 167.6 cm; Wt 7.3 kg
--- NOTE | 2017-01-18 15:07 | PD ---
HPI Chief Complaint: SEIZURE Time Seen by Provider: 15:02 Travel History International Travel<30 days: No Contact w/Intl Traveler<30days: No Traveled to known affect area: No History of Present Illness HPI WHILE GETTING OFF BUS PATIENT WAS WITNESSED TO HAVE A SEIZURE, PATIENT DOESN'T RECALL DETAILS ABOUT THAT BUT RECALLS GETTING ON BUS TO GO HOME. PATIENT APPARENTLY HAD URINARY INCONTINENCE PER EMS, ACCUCHECK 82, PER CHART REVIEW PT IS SUPPOSED TO BE ON DILANTIN BUT PER PT HE IS NOT ON DILANTIN CURRENTLY. PFSH Past Medical History Arthritis: Yes (FEET AND HANDS) Asthma: No Autoimmune Disease: No Blood Disorders: No Anxiety: No Depression: No Heart Rhythm Problems: No Cancer: No Cardiovascular Problems: Yes High Cholesterol: No Chemotherapy: No Chest Pain: No Congestive Heart Failure: No COPD: No Cerebrovascular Accident: No Diabetes: No Diminished Hearing: No Endocrine: No Gastrointestinal Disorders: No GERD: No Glaucoma: No Genitourinary: No Headaches: No Hepatitis: No Hiatal Hernia: No Hypertension: Yes Immune Disorder: No Kidney Stones: No Musculoskeletal: Yes Neurologic: Yes (TBI 1999) Psychiatric: No Reproductive: No Respiratory: No Immunizations Current: Yes Migraines: No Myocardial Infarction: No Radiation Therapy: No Renal Failure: No Seizures: Yes (ETOH WITHDRAWL ) Sickle Cell Disease: No Sleep Apnea: No Thyroid Disease: No Ulcer: No Past Surgical History Abdominal Surgery: No AICD: No Appendectomy: Yes Arteriovenous Shunt: Yes Cardiac Surgery: No Cholecystectomy: No Ear Surgery: No Endocrine Surgery: No Eye Surgery: No Genitourinary Surgery: No Gynecologic Surgery: No Insulin Pump: No Joint Replacement: No Neurologic Surgery: No Oral Surgery: Yes (FX JAW X 2 2001 AND 2006) Pacemaker: No Thoracic Surgery: No Tonsillectomy: Yes Other Surgery: Yes Social History Alcohol Use: Yes Tobacco Use: Yes (1 PACK PER DAY) Substance Use: No (DENIES) Allergies-Medications (Allergen,Severity, Reaction): Coded Allergies: No Known Allergies (Verified , 01/08/17) Reported Meds & Prescriptions Reported Meds & Active Scripts Active Dilantin (Phenytoin Extended) 100 Mg Cap 100 Mg PO TID Keppra (Levetiracetam) 500 Mg Tab 500 Mg PO BID Reported Dilantin (Phenytoin Extended) 100 Mg Cap Unknown Dose PO BID Review of Systems Except as stated in HPI: all other systems reviewed are Neg Neurologic: Positive: Seizures Physical Exam Narrative GENERAL: SKIN: Warm and dry. HEAD: Atraumatic. Normocephalic. EYES: Pupils equal and round. No scleral icterus. No injection or drainage. ENT: No nasal bleeding or discharge. Mucous membranes pink and moist. NECK: Trachea midline. No JVD. CARDIOVASCULAR: Regular rate and rhythm. RESPIRATORY: No accessory muscle use. Clear to auscultation. Breath sounds equal bilaterally. GASTROINTESTINAL: Abdomen soft, non-tender, nondistended. Hepatic and splenic margins not palpable. MUSCULOSKELETAL: Extremities without clubbing, cyanosis, or edema. No obvious deformities. NEUROLOGICAL: Awake and alert. No obvious cranial nerve deficits. Motor grossly within normal limits. Five out of 5 muscle strength in the arms and legs. Normal speech. PSYCHIATRIC: Appropriate mood and affect; insight and judgment normal. Data Data Last Documented VS Vital Signs Date Time Temp Pulse Resp B/P Pulse Ox O2 Delivery O2 Flow Rate FiO2 01/18/17 15:28 16 98 Room Air 01/18/17 15:26 97.9 82 176/[address] Brain W/O Iv Contrast(Rout) (01/18/17 15:07) Blood Glucose (01/18/17 15:07) Phenytoin (Dilantin) (01/18/17 15:15) MDM Medical Decision Making Medical Screen Exam Complete: Yes Emergency Medical Condition: Yes Medical Record Reviewed: Yes Differential Diagnosis HYPOGLYCEMIA V EPILEPSY V ICH Narrative Course PATIENT EVALUATION DID NOT REVEAL ANY CONTUSION/HEMOTYMPANUM AND CT HEAD DONE ON JANUARY [address] TODAY DID NOT SHOW NEW ICH OR SKULL FX EITHER...PATIENT PO LOADED WITH DILANTIN AND WILL BE D/C Diagnosis Primary Impression: S/P SEIZURE DISORDER Scripts Phenytoin Extended (Dilantin)100 Mg Mrg172 Mg PO TID #90 CAP Ref 0 Prov:Ben Timmons MD 01/18/17 Disposition: 01 DISCHARGE HOME Condition: Stable Ben Timmons MD Jan 18, 2017 15:07 Ben Timmons MD Jan 18, 2017 15:07
[2017-01-18] MEDS ORDERED: PHENYTOIN SODIUM 100 MG CAP PO ONE (15:15)
[2017-01-18 15:26] VITALS: BP 176/83; PULSE 82; RESP 16; TEMP 97.9; O2SAT 99
[2017-01-18] MEDS ORDERED: DILA100C PO (16:08)
--- NOTE | 2017-01-18 16:38 | RADRPT ---
EXAM DATE/TIME: 01/18/2017 16:06 [facility] COMPARISON: CT BRAIN W/O CONTRAST, January 08, 2017, 21:44. INDICATIONS : Patient had seizure. RADIATION DOSE: 34.77 CTDIvol (mGy) MEDICAL HISTORY : Cardiovascular disease. Hypertension. SURGICAL HISTORY : Appendectomy. ENCOUNTER: Initial ACUITY: 1 day PAIN SCALE: 0/10 LOCATION: cranial TECHNIQUE: Multiple contiguous axial images were obtained of the head. Using automated exposure control and adj ustment of the mA and/or kV according to patient size, radiation dose was kept as low as reasonably a chievable to obtain optimal diagnostic quality images. DICOM format image data is available electro nically for review and comparison. FINDINGS: CEREBRUM: Stable chronic changes with periventricular small vessel ischemic demyelination, encephalomalacic gurpreet nges in a bifrontal distribution and in the left parietal lobe. Dystrophic type calcifications are se en in the basal ganglia and thalamus as well as the dentate nuclei bilaterally and symmetrically. No evidence of midline shift, mass lesion, hemorrhage or acute infarction. No extra-axial fluid collec tions are seen. POSTERIOR FOSSA: The cerebellum and brainstem are intact. Again, dystrophic type calcifications in the dentate nuclei symmetrically and bilaterally. The 4th ventricle is midline. The cerebellopontine angle is unremark able. EXTRACRANIAL: The visualized portion of the orbits is intact. SKULL: The calvaria is intact. No evidence of skull fracture. CONCLUSION: 1. Stable chronic changes with periventricular small vessel ischemic demyelination, bifrontal and lef t parietal encephalomalacia as well as bilateral, symmetric dystrophic type calcifications in the bas al ganglia, thalami and dentate nuclei. 2. Otherwise, no superimposed acute intracranial process to explain current clinical symptoms. Bryan Silverio MD on January 18, 2017 at 16:15 Board Certified Radiologist. This report was verified electronically.
[2017-01-18 17:23] VITALS: BP 126/77
== END 2017-01-18 18:06 | disposition home or self-care (01) ==
LOC: NEPE 14:18
DX: G40.909 Epilepsy, unspecified, not intractable, without status epilepticus (principal); R32 Unspecified urinary incontinence; M13.849 Other specified arthritis, unspecified hand; M13.879 Other specified arthritis, unspecified ankle and foot; I10 Essential (primary) hypertension; F17.200 Nicotine dependence, unspecified, uncomplicated; Z79.899 Other long term (current) drug therapy; Z87.820 Personal history of traumatic brain injury
CPT/HCPCS: 70450; 99284

== ENCOUNTER 2017-08-31 12:21 | Emergency (ER) | payer SELFPAY ==
[2017-08-31 12:51] VITALS: BP 137/92; PULSE 92; RESP 18; TEMP 98.5; O2SAT 98
--- NOTE | 2017-08-31 13:43 | RADRPT ---
EXAM DATE/TIME: 08/31/2017 13:25 [facility] COMPARISON: CHEST SINGLE AP, February 07, 2016, 5:14. INDICATIONS : Patient complains of left side chest pain and burning. MEDICAL HISTORY : Cardiovascular disease. Hypertension SURGICAL HISTORY : Appendectomy. ENCOUNTER: Initial ACUITY: 1 week PAIN SCORE: 7/10 LOCATION: Bilateral chest FINDINGS: There are mild atelectatic changes at the left lung base. There is some linear atelectasis seen in th e right midlung field as well. There are COPD changes. No pneumothorax is present. The cardiac and mediastinal contours are within normal limits. CONCLUSION: 1. COPD and atelectatic changes as above. The overall appearance of the chest is improved compared to prior dated 02/07/60. Avel Alfaro MD on August 31, 2017 at 13:41 Board Certified Radiologist. This report was verified electronically.
[2017-08-31] MEDS ORDERED: KETOROLAC TROMETHAMINE 60 MG/2 ML (IM) VIAL IM ONE (14:15)
--- NOTE | 2017-08-31 14:20 | PD ---
HPI Chief Complaint: Musculoskeletal Complaint Time Seen by Provider: 14:03 Travel History International Travel<30 days: No Contact w/Intl Traveler<30days: No Traveled to known affect area: No History of Present Illness HPI Patient comes to the emergency department complaining of left-sided rib pain [place] that began a week ago. Patient thinks that he may have fell injuring her ribs but is uncertain. Patient describes pain as a pulling sensation that is worse with certain movement of his left upper extremity, palpation, deep inspiration. Pain improves with not moving his left upper extremity as much. Patient denies doing anything for this. Denies any fevers, chest pain, shortness of breath, abdominal pain, numbness or tingling, or weakness. Denies any radiation of the pain. PFSH Past Medical History Arthritis: Yes (FEET AND HANDS) Asthma: No Autoimmune Disease: No Blood Disorders: No Anxiety: No Depression: No Heart Rhythm Problems: No Cancer: No Cardiovascular Problems: Yes High Cholesterol: No Chemotherapy: No Chest Pain: No Congestive Heart Failure: No COPD: No Cerebrovascular Accident: No Diabetes: No Diminished Hearing: No Endocrine: No Gastrointestinal Disorders: No GERD: No Glaucoma: No Genitourinary: No Headaches: No Hepatitis: No Hiatal Hernia: No Hypertension: Yes Immune Disorder: No Kidney Stones: No Musculoskeletal: Yes Neurologic: Yes (TBI 1999) Psychiatric: No Reproductive: No Respiratory: No Immunizations Current: Yes Migraines: No Myocardial Infarction: No Radiation Therapy: No Renal Failure: No Seizures: Yes (ETOH WITHDRAWL ) Sickle Cell Disease: No Sleep Apnea: No Thyroid Disease: No Ulcer: No Past Surgical History Abdominal Surgery: No AICD: No Appendectomy: Yes Arteriovenous Shunt: Yes Cardiac Surgery: No Cholecystectomy: No Ear Surgery: No Endocrine Surgery: No Eye Surgery: No Genitourinary Surgery: No Gynecologic Surgery: No Insulin Pump: No Joint Replacement: No Neurologic Surgery: No Oral Surgery: Yes (FX JAW X 2 2001 AND 2006) Pacemaker: No Thoracic Surgery: No Tonsillectomy: Yes Other Surgery: Yes Social History Alcohol Use: No (MEDICAL HX SHOWS ALCOHOL ABUSE ) Tobacco Use: No Substance Use: No Allergies-Medications (Allergen,Severity, Reaction): Coded Allergies: No Known Allergies (Verified , 01/08/17) Reported Meds & Prescriptions Reported Meds & Active Scripts Active Mobic (Meloxicam) 7.5 Mg Tab 7.5 Mg PO DAILY 7 Days Review of Systems Except as stated in HPI: all other systems reviewed are Neg Physical Exam Narrative GENERAL: Well-developed, well nourished, in no acute distress, and non-ill appearing. SKIN: Focused skin assessment warm and dry. HEAD: Atraumatic. Normocephalic. EYES: Pupils equal and round. EOMI. No scleral icterus. No injection or drainage. ENT: No nasal bleeding or discharge. Mucous membranes pink and moist. NECK: Trachea midline. Supple. No nuclear rigidity. CARDIOVASCULAR: Regular rate and rhythm. No murmur appreciated. Radial pulses 2+, intact, and equal bilaterally. RESPIRATORY: No accessory muscle use. No respiratory distress. Clear to auscultation. Breath sounds equal bilaterally. Patient reports point tenderness over left rib cage midaxilla approximately ribs 5 and 6. No ecchymosis, crepitus, or step-off. GASTROINTESTINAL: Abdomen soft, non-tender, nondistended, and no guarding. Hepatic and splenic margins not palpable. No pulsatile mass. MUSCULOSKELETAL: No obvious deformities. No clubbing. No cyanosis. No edema. Full range of motion. NEUROLOGICAL: Awake and alert. No obvious cranial nerve deficits. Motor grossly within normal limits. Normal speech for patient. PSYCHIATRIC: Appropriate mood and affect; insight and judgment normal. Data Data Last Documented VS Vital Signs Date Time Temp Pulse Resp B/P (MAP) Pulse Ox O2 Delivery O2 Flow Rate FiO2 08/31/17 15:07 16 08/31/17 12:51 98.5 92 137/92 (107) 98 Orders Orders Chest, Pa & Lat (08/31/17 ) Ketorolac Inj (Toradol Inj) (08/31/17 14:15) Resp Incentive Spirometry (08/31/17 ) Ed Discharge Order (08/31/17 14:44) MDM Medical Decision Making Medical Screen Exam Complete: Yes Emergency Medical Condition: Yes Interpretation(s) Last Impressions Chest X-Ray 08/31/17 0000 Signed Impressions: Service Date/Time: Thursday, August 31, 2017 13:25 - CONCLUSION: 1. COPD and atelectatic changes as above. The overall appearance of the chest is improved compared to prior dated [birth year]/07/[birth year]. Avel Alfaro MD Differential Diagnosis Fracture, strain, contusion, pneumothorax, pneumonia Narrative Course The patient suffered a minor chest wall contusion. There is no clinical evidence to suggest intrathoracic injury nor cardiac injury at this time. The patient has no significant pain, shortness of breath or dyspnea. The patient moves air well without difficulty and is clear to auscultation. Heart sounds are audible without rubs, murmurs or gallops. There is no palpable crepitus. Pulses are symmetrical and strong. There is no significant tenderness over the lower chest to suggest injury to the liver nor spleen. Diagnosis was discussed with they patient. The patient is to return if develops any worsening pain difficulty breathing, or if coughs up blood or develops fever. Patient agrees with plan and was recommended to follow up with their regular physician. Patient in no obvious distress upon re-evaluation. All pertinent Radiology result(s) discussed with patient. Patient was asked if they wanted to speak to my attending, which the patient did not wish to do at this time. Any questions/ concerns in reference to patient diagnosis/condition discussed and clarified prior to patient's discharge. Reinforced sheer importance of close follow up with patient's primary physician or primary care clinic. Instructed patient to return to ED immediately, if symptoms return/worsen. Patient showed understanding of above instructions. Further instructions and recommendations were detailed in discharge paperwork. Patient ambulated without difficulty out of ED at discharge. Diagnosis Primary Impression: Contusion of rib on left side Qualified Codes: S20.212A - Contusion of left front wall of thorax, initial encounter Referrals: [facility] Patient Instructions: General Instructions, Rib Contusion (ED) Additional Instructions: Follow-up with your primary care physician in 3-5 days for reevaluation. Take all medication as prescribed. Apply ice to affected area 20 minutes prior as needed for pain. Use incentive spirometer as instructed 10 times per hour while awake to decrease chances of getting a pneumonia. Return to the emergency department if symptoms get worse. Med/Other Pt SpecificInfo: Prescription(s) given Scripts Meloxicam (Mobic) 7.5 Mg Tab 7.5 MG PO DAILY for Pain for 7 Days, #7 TAB 0 Refills Prov: Sony Osorio MD 08/31/17 Disposition: 01 DISCHARGE HOME Condition: Stable John Chance Aug 31, 2017 14:20
[2017-08-31] MEDS ORDERED: MOBI7.5T PO (14:21)
[2017-08-31 15:07] VITALS: RESP 16
== END 2017-08-31 15:12 | disposition home or self-care (01) ==
LOC: NEPK 12:21
DX: S20.212A Contusion of left front wall of thorax, initial encounter (principal); J44.9 Chronic obstructive pulmonary disease, unspecified; I10 Essential (primary) hypertension; Z87.820 Personal history of traumatic brain injury; X58.XXXA Exposure to other specified factors, initial encounter
CPT/HCPCS: 71046; 94150; 96372; 99283; J1885

== ENCOUNTER 2017-09-02 14:14 | Observation (INO) | payer SELFPAY ==
[2017-09-02] VITALS (7 sets, daily range): BP systolic 121–189; BP diastolic 63–91; PULSE 59–110; RESP 17–22; TEMP 96.9–98.7; O2SAT 95–98
[~2017-09-02] VITALS: Ht 170.2 cm; Wt 70.0 kg
[~2017-09-02 14:14] MED LIST changes: -DILA100C PO; -LEVE500 PO; +MOBI7.5T PO
[2017-09-02] MEDS ORDERED: SODIUM CHLOR 0.9% 1000 ML INJ 1,000 ML IV ONE (14:22)
--- NOTE | 2017-09-02 14:27 | PD ---
HPI Chief Complaint: seizure Time Seen by Provider: 14:22 Travel History International Travel<30 days: No Contact w/Intl Traveler<30days: No Traveled to known affect area: No History of Present Illness HPI The patient is a 57-year-old male who presents to the emergency department after a witnessed seizure. According to EMS the patient's daughter witnessed the patient having a seizure earlier today. The patient does have a history of seizures, is noncompliant on his Dilantin. He does have a history of alcohol abuse, no longer drinks alcohol per the patient's report. According to EMS the patient's daughter witnessed a tonic-clonic seizure. The patient was postictal when they arrived, however, has improved prior to arrival in the emergency department. Upon arrival the patient is unsure why he is in the emergency department, does state he has a history of seizures but is not currently taken Dilantin. He cannot recall his last drink of alcohol, but states it has been some time. He denies any headache, neck pain, chest pain, shortness breath, nausea, vomiting, or abdominal pain. Symptoms are moderate, possibly exacerbated by history of seizures and noncompliance. PFSH Past Medical History Arthritis: Yes (FEET AND HANDS) Asthma: No Autoimmune Disease: No Blood Disorders: No Anxiety: No Depression: No Heart Rhythm Problems: No Cancer: No Cardiovascular Problems: Yes High Cholesterol: No Chemotherapy: No Chest Pain: No Congestive Heart Failure: No COPD: No Cerebrovascular Accident: No Diabetes: No Diminished Hearing: No Endocrine: No Gastrointestinal Disorders: No GERD: No Glaucoma: No Genitourinary: No Headaches: No Hepatitis: No Hiatal Hernia: No Hypertension: Yes Immune Disorder: No Kidney Stones: No Musculoskeletal: Yes Neurologic: Yes (TBI 1999) Psychiatric: No Reproductive: No Respiratory: No Immunizations Current: Yes Migraines: No Myocardial Infarction: No Radiation Therapy: No Renal Failure: No Seizures: Yes (ETOH WITHDRAWL ) Sickle Cell Disease: No Sleep Apnea: No Thyroid Disease: No Ulcer: No Past Surgical History Abdominal Surgery: No AICD: No Appendectomy: Yes Arteriovenous Shunt: Yes Cardiac Surgery: No Cholecystectomy: No Ear Surgery: No Endocrine Surgery: No Eye Surgery: No Genitourinary Surgery: No Gynecologic Surgery: No Insulin Pump: No Joint Replacement: No Neurologic Surgery: No Oral Surgery: Yes (FX JAW X 2 2001 AND 2006) Pacemaker: No Thoracic Surgery: No Tonsillectomy: Yes Other Surgery: Yes Social History Alcohol Use: No (MEDICAL HX SHOWS ALCOHOL ABUSE ) Tobacco Use: No Substance Use: No Allergies-Medications (Allergen,Severity, Reaction): Coded Allergies: No Known Allergies (Verified , 01/08/17) Reported Meds & Prescriptions Reported Meds & Active Scripts Active Mobic (Meloxicam) 7.5 Mg Tab 7.5 Mg PO DAILY 7 Days Review of Systems Except as stated in HPI: all other systems reviewed are Neg General / Constitutional: No: Fever Eyes: No: Visual changes HENT: No: Headaches, Lightheadedness Cardiovascular: No: Chest Pain or Discomfort Respiratory: No: Shortness of Breath Gastrointestinal: No: Nausea, Vomiting, Abdominal Pain Genitourinary: Positive: Incontinence Musculoskeletal: No: Weakness Neurologic: Positive: Seizures, No: Focal Abnormalities, Headache, Change in Mentation Psychiatric: No: Substance Abuse Physical Exam Narrative GENERAL: Awake, alert, pleasant 57-year-old male who appears his stated age and is in no acute respiratory distress. SKIN: Focused skin assessment warm/dry. HEAD: Atraumatic. Normocephalic. EYES: Pupils equal and round. 3 mm bilateral and reactive. ENT: No nasal bleeding or discharge. Upper bridge noted. NECK: Trachea midline. No JVD. CARDIOVASCULAR: Regular rate and rhythm. No murmur appreciated. RESPIRATORY: No accessory muscle use. Clear to auscultation. Breath sounds equal bilaterally. GASTROINTESTINAL: Abdomen soft, non-tender, nondistended. No rebound tenderness. Appears incontinent of urine. MUSCULOSKELETAL: No obvious deformities. No clubbing. No cyanosis. No edema. NEUROLOGICAL: Awake and alert. No obvious cranial nerve deficits. Motor grossly within normal limits. Normal speech. Oriented to person, place, and year. Nonfocal. PSYCHIATRIC: Flat affect. Insight and judgment appear normal. Data Data Last Documented VS Vital Signs Date Time Temp Pulse Resp B/P (MAP) Pulse Ox O2 Delivery O2 Flow Rate FiO2 09/02/17 15:27 110 22 174/77 (109) 95 Nasal Cannula 3.00 09/02/17 14:22 98.7 Orders Orders Complete Blood Count With Diff (09/02/17 14:22) Alcohol (Ethanol) (09/02/17 14:22) Phenytoin (Dilantin) (09/02/17 14:22) Blood Glucose (09/02/17 14:22) Ecg Monitoring (09/02/17 14:22) Iv Access Insert/Monitor (09/02/17 14:22) Oximetry (09/02/17 14:22) Comprehensive Metabolic Panel (09/02/17 14:22) Sodium Chlor 0.9% 1000 Ml Inj (Ns 1000 M (09/02/17 14:22) Sodium Chloride 0.9% Flush (Ns Flush) (09/02/17 14:30) Lorazepam Inj (Ativan Inj) (09/02/17 15:12) Lorazepam Inj (Ativan Inj) (09/02/17 15:15) Phenytoin Inj (Dilantin Inj) (09/02/17 16:30) Admit Order (Ed Use Only) (09/02/17 16:31) Labs Laboratory Tests Test 09/02/17 14:35 White Blood Count 6.7 TH/MM3 Red Blood Count 5.61 MIL/MM3 Hemoglobin 17.6 GM/DL Hematocrit 50.1 % Mean Corpuscular Volume 89.3 FL Mean Corpuscular Hemoglobin 31.4 PG Mean Corpuscular Hemoglobin Concent 35.2 % Red Cell Distribution Width 15.4 % Platelet Count 217 TH/MM3 Mean Platelet Volume 8.2 FL Neutrophils (%) (Auto) 78.0 % Lymphocytes (%) (Auto) 14.5 % Monocytes (%) (Auto) 6.0 % Eosinophils (%) (Auto) 0.8 % Basophils (%) (Auto) 0.7 % Neutrophils # (Auto) 5.2 TH/MM3 Lymphocytes # (Auto) 1.0 TH/MM3 Monocytes # (Auto) 0.4 TH/MM3 Eosinophils # (Auto) 0.1 TH/MM3 Basophils # (Auto) 0.0 TH/MM3 CBC Comment DIFF FINAL Differential Comment Blood Urea Nitrogen 10 MG/DL Creatinine 1.00 MG/DL Random Glucose 97 MG/DL Total Protein 8.3 GM/DL Albumin 4.1 GM/DL Calcium Level 8.9 MG/DL Alkaline Phosphatase 101 U/L Aspartate Amino Transf (AST/SGOT) 18 U/L Alanine Aminotransferase (ALT/SGPT) 11 U/L Total Bilirubin 0.6 MG/DL Sodium Level 136 MEQ/L Potassium Level 3.9 MEQ/L Chloride Level 102 MEQ/L Carbon Dioxide Level 26.8 MEQ/L Anion Gap 7 MEQ/L Estimat Glomerular Filtration Rate 77 ML/MIN Phenytoin (Dilantin) Level 0.8 MCG/ML Ethyl Alcohol Level LESS THAN 3 MG/DL MDM Medical Decision Making Medical Screen Exam Complete: Yes Emergency Medical Condition: Yes Medical Record Reviewed: Yes Interpretation(s) Laboratory Tests Test 09/02/17 14:35 White Blood Count 6.7 TH/MM3 Red Blood Count 5.61 MIL/MM3 Hemoglobin 17.6 GM/DL Hematocrit 50.1 % Mean Corpuscular Volume 89.3 FL Mean Corpuscular Hemoglobin 31.4 PG Mean Corpuscular Hemoglobin Concent 35.2 % Red Cell Distribution Width 15.4 % Platelet Count 217 TH/MM3 Mean Platelet Volume 8.2 FL Neutrophils (%) (Auto) 78.0 % Lymphocytes (%) (Auto) 14.5 % Monocytes (%) (Auto) 6.0 % Eosinophils (%) (Auto) 0.8 % Basophils (%) (Auto) 0.7 % Neutrophils # (Auto) 5.2 TH/MM3 Lymphocytes # (Auto) 1.0 TH/MM3 Monocytes # (Auto) 0.4 TH/MM3 Eosinophils # (Auto) 0.1 TH/MM3 Basophils # (Auto) 0.0 TH/MM3 CBC Comment DIFF FINAL Differential Comment Blood Urea Nitrogen 10 MG/DL Creatinine 1.00 MG/DL Random Glucose 97 MG/DL Total Protein 8.3 GM/DL Albumin 4.1 GM/DL Calcium Level 8.9 MG/DL Alkaline Phosphatase 101 U/L Aspartate Amino Transf (AST/SGOT) 18 U/L Alanine Aminotransferase (ALT/SGPT) 11 U/L Total Bilirubin 0.6 MG/DL Sodium Level 136 MEQ/L Potassium Level 3.9 MEQ/L Chloride Level 102 MEQ/L Carbon Dioxide Level 26.8 MEQ/L Anion Gap 7 MEQ/L Estimat Glomerular Filtration Rate 77 ML/MIN Phenytoin (Dilantin) Level 0.8 MCG/ML Ethyl Alcohol Level LESS THAN 3 MG/DL Differential Diagnosis Differential diagnosis includes seizure, noncompliance, subtherapeutic Dilantin level, hyponatremia, hypocalcemia, electrolyte abnormality, alcohol abuse, alcohol withdrawal seizure. Narrative Course IV was established, labs are drawn and sent, and the patient was placed on cardiac telemetry monitoring and continuous pulse oximetry monitoring. Dilantin level was sent to lab. The patient was administered IV fluids. At 3: 11 PM the patient was noted be tachycardic and experienced a tonic-clonic seizure. The patient's heart rate was elevated to 150. The patient was immediately placed on a nonrebreather, head of bed up at 30 with the head to the left, was administered Ativan 2 mg intravenously. The patient's heart rate came down to 105, the seizure activity. To stop. The patient did have seizure precautions prior to the seizure and continue to be monitored in the emergency department. The patient was monitored, at 4:26 PM, was still postictal, may have never completely regained normal mental status between seizures. Therefore , patient will be 23 hour observation. He was administered Dilantin 1 g intravenously. The on-call medical service was paged for 23 hour observation. Physician Communication Physician Communication The on-call medical service was paged for 23 hour observation. I discussed patient with Dr. Cosby who agrees with 23 hour observation. Diagnosis Primary Impression: Seizure Admitting Information Admitting Physician Requests: Observation Patient Instructions: General Instructions Condition: Stable Burak Murillo MD Sep 02, 2017 14:27
[2017-09-02] MEDS ORDERED: SODIUM CHLORIDE 0.9% FLUSH 10 ML FLUSH IVF PRN (14:30)
[2017-09-02] MEDS ORDERED: LORazepam 2 MG/ML VIAL ONE (15:12)
[2017-09-02] MEDS ORDERED: LORazepam 2 MG/ML VIAL IV PUSH ONE (15:15)
[2017-09-02 15:32] LABS: ALBUMIN 4.1 GM/DL (3.4-5.0); ALT (GPT) 11 U/L (12-78); AST (GOT) 18 U/L (15-37); BICARBONATE 26.8 MEQ/L (21.0-32.0); BLOOD UREA NITROGEN 10 MG/DL (7-18); CALCIUM 8.9 MG/DL (8.5-10.1); CHLORIDE 102 MEQ/L (98-107); GLOMERULAR FILTRATION RATE 77 ML/MIN (>89); GLUCOSE,RANDOM 97 MG/DL (74-106); SODIUM (NA) 136 MEQ/L (136-145)
[2017-09-02 15:33] LABS: ALKALINE PHOSPHATASE 101 U/L (45-117); AUTOMATED NEUTROPHIL # 5.2 TH/MM3 (1.8-7.7); BASOPHIL % 0.7 % (0.0-2.0); EOSINOPHIL # 0.1 TH/MM3 (0-0.4); EOSINOPHIL % 0.8 % (0.0-4.0); HEMATOCRIT 50.1 % (39.0-51.0); HEMOGLOBIN 17.6 GM/DL (13.0-17.0); LYMPH % 14.5 % (9.0-44.0); MEAN CELL VOLUME 89.3 FL (80.0-100.0); MEAN CORPUSCULAR HEMOGLOBIN 31.4 PG (27.0-34.0); MEAN CORPUSCULAR HGB CONC 35.2 % (32.0-36.0); MEAN PLATELET VOLUME 8.2 FL (7.0-11.0); MONOCYTE # 0.4 TH/MM3 (0-0.9); PHENYTOIN (DILANTIN) 0.8 MCG/ML (10.0-20.0); PLATELET COUNT 217 TH/MM3 (150-450); RED BLOOD COUNT 5.61 MIL/MM3 (4.50-5.90); RED CELL DISTRIBUTION WIDTH 15.4 % (11.6-17.2); TOTAL BILIRUBIN ADULT 0.6 MG/DL (0.2-1.0); TOTAL PROTEIN 8.3 GM/DL (6.4-8.2); WHITE BLOOD COUNT 6.7 TH/MM3 (4.0-11.0)
[2017-09-02] MEDS ORDERED: PHENYTOIN INJ 1,000 MG in SODIUM CHLORIDE 0.9% INJ 100 ML IV ONE (16:30)
[2017-09-02] MEDS ORDERED: BISACODYL 10 MG SUPP RECTAL PRN (16:45)
[2017-09-02] MEDS ORDERED: MAGNESIUM HYDROXIDE SUSP 30 ML CUP PO PRN (16:45)
[2017-09-02] MEDS ORDERED: NALOXONE HCL 0.4 MG/ML AMP IV PUSH PRN (16:45)
[2017-09-02] MEDS ORDERED: LACTULOSE SYRUP 20 GM/30 ML CUP PO PRN (16:45)
[2017-09-02] MEDS ORDERED: ACETAMINOPHEN 325 MG TAB PO PRN (16:45)
[2017-09-02] MEDS ORDERED: SENNOSIDES 8.6 MG TAB PO PRN (16:45)
[2017-09-02] MEDS ORDERED: SODIUM CHLORIDE 0.9% FLUSH 10 ML FLUSH IV FLUSH PRN (16:45)
[2017-09-02] MEDS ORDERED: ONDANSETRON HCL 4 MG/2 ML VIAL IVP PRN (16:45)
--- NOTE | 2017-09-02 17:47 | HHI.HP ---
HPI Service [facility] Primary Care Physician No Primary Care Physician Admission Diagnosis seizure, prolonged postictal state Diagnoses: Chief Complaint: seizures Travel History International Travel<30 Days: No Contact w/Intl Traveler <30 Da: No Traveled to Known Affected Are: No History of Present Illness The patient is a 57-year-old male with h/o seizures, noncompliance, who presents to the emergency department after a witnessed seizure. According to EMS the patient's daughter witnessed the patient having a seizure earlier today. The patient does have a history of seizures, is noncompliant on his Dilantin. He does have a history of alcohol abuse, no longer drinks alcohol per the patient's report. According to EMS the patient's daughter witnessed a tonic-clonic seizure. The patient was postictal when they arrived, however, has improved prior to arrival in the emergency department. Upon arrival the patient is unsure why he is in the emergency department, does state he has a history of seizures but is not currently taken Dilantin. He cannot recall his last drink of alcohol, but states it has been some time. He denies any headache , neck pain, chest pain, shortness breath, nausea, vomiting, or abdominal pain. Symptoms are moderate, possibly exacerbated by history of seizures and noncompliance. Review of Systems ROS Limitations: Clinical Condition Except as stated in HPI: all other systems reviewed are Neg Past Family Social History Past Medical History seizures Past Surgical History surgery for jaw fracture I Reported Medications Reported Meds & Active Scripts Active Mobic (Meloxicam) 7.5 Mg Tab 7.5 Mg PO DAILY 7 Days Allergies: Coded Allergies: No Known Allergies (Verified Allergy, Unknown, 09/02/17) Family History 2 sisters healthy doesn't recall parents medical history Social History EtOH use not able to specify how much No illicit drug use Physical Exam Vital Signs Vital Signs Date Time Temp Pulse Resp B/P (MAP) Pulse Ox O2 Delivery O2 Flow Rate FiO2 09/02/17 17:18 96.9 88 20 133/78 (96) 96 09/02/17 15:27 110 22 174/77 (109) 95 Nasal Cannula 3.00 09/02/17 14:39 92 154/63 (93) 09/02/17 14:22 98.7 96 17 189/91 (123) Physical Exam GENERAL: This is a well-nourished, well-developed patient, in no apparent distress. SKIN: No rashes, ecchymoses or lesions. Cool and dry. HEAD: Atraumatic. Normocephalic. No temporal or scalp tenderness. EYES: Pupils equal round and reactive. Extraocular motions intact. No scleral icterus. No injection or drainage. ENT: Nose without bleeding, purulent drainage or septal hematoma. Throat without erythema, tonsillar hypertrophy or exudate. Uvula midline. Airway patent. NECK: Trachea midline. No JVD or lymphadenopathy. Supple, nontender, no meningeal signs. CARDIOVASCULAR: Regular rate and rhythm without murmurs, gallops, or rubs. RESPIRATORY: Clear to auscultation. Breath sounds equal bilaterally. No wheezes , rales, or rhonchi. GASTROINTESTINAL: Abdomen soft, non-tender, nondistended. No hepato-splenomegaly , or palpable masses. No guarding. MUSCULOSKELETAL: Extremities without clubbing, cyanosis, or edema. No joint tenderness, effusion, or edema noted. No calf tenderness. Negative Homans sign bilaterally. NEUROLOGICAL: Awake and alert. Cranial nerves II through XII intact. Motor and sensory grossly within normal limits. Five out of 5 muscle strength in all muscle groups. Normal speech. Laboratory Laboratory Tests Test 09/02/17 14:35 White Blood Count 6.7 Red Blood Count 5.61 Hemoglobin 17.6 Hematocrit 50.1 Mean Corpuscular Volume 89.3 Mean Corpuscular Hemoglobin 31.4 Mean Corpuscular Hemoglobin Concent 35.2 Red Cell Distribution Width 15.4 Platelet Count 217 Mean Platelet Volume 8.2 Neutrophils (%) (Auto) 78.0 Lymphocytes (%) (Auto) 14.5 Monocytes (%) (Auto) 6.0 Eosinophils (%) (Auto) 0.8 Basophils (%) (Auto) 0.7 Neutrophils # (Auto) 5.2 Lymphocytes # (Auto) 1.0 Monocytes # (Auto) 0.4 Eosinophils # (Auto) 0.1 Basophils # (Auto) 0.0 CBC Comment DIFF FINAL Differential Comment Blood Urea Nitrogen 10 Creatinine 1.00 Random Glucose 97 Total Protein 8.3 Albumin 4.1 Calcium Level 8.9 Alkaline Phosphatase 101 Aspartate Amino Transf (AST/SGOT) 18 Alanine Aminotransferase (ALT/SGPT) 11 Total Bilirubin 0.6 Sodium Level 136 Potassium Level 3.9 Chloride Level 102 Carbon Dioxide Level 26.8 Anion Gap 7 Estimat Glomerular Filtration Rate 77 Phenytoin (Dilantin) Level 0.8 Ethyl Alcohol Level LESS THAN 3 Result Diagram: 09/02/17 1435 09/02/17 1435 Caprini VTE Risk Assessment Caprini VTE Risk Assessment: Mod/High Risk (score >= 2) Caprini Risk Assessment Model Point Value = 1 Point Value = 2 Point Value = 3 Point Value = 5 Age 41-60 Minor surgery BMI > 25 kg/m2 Swollen legs Varicose veins or History of unexplained or recurrent spontaneous Oral contraceptives or hormone replacement Sepsis (< 1 month) Serious lung disease, including pneumonia (< 1 month) Abnormal pulmonary function Acute myocardial infarction Congestive heart failure (< 1 month) History of inflammatory bowel disease Medical patient at bed rest Age 61-74 Arthroscopic surgery Major open surgery (> 45 min) Laparoscopic surgery (> 45 min) Malignancy Confined to bed (> 72 hours) Immobilizing plaster cast Central venous access Age >= 75 History of VTE Family history of VTE Factor V Leiden Prothrombin [id number] Lupus anticoagulant Anticardiolipin antibodies Elevated serum homocysteine Heparin-induced thrombocytopenia Other congenital or acquired thrombophilia Stroke (< 1 month) Elective arthroplasty Hip, pelvis, or leg fracture Acute spinal cord injury (< 1 month) Prophylaxis Regimen Total Risk Factor Score Risk Level Prophylaxis Regimen 0-1 Low Early ambulation 2 Moderate Order ONE of the following: *Sequential Compression Device (SCD) *Heparin 5000 units SQ BID 3-4 Higher Order ONE of the following medications: *Heparin 5000 units SQ TID *Enoxaparin/Lovenox 40 mg SQ daily (WT < 150 kg, CrCl > 30 mL/min) *Enoxaparin/Lovenox 30 mg SQ daily (WT < 150 kg, CrCl > 10-29 mL/min) *Enoxaparin/Lovenox 30 mg SQ BID (WT < 150 kg, CrCl > 30 mL/min) AND/OR *Sequential Compression Device (SCD) 5 or more Highest Order ONE of the following medications: *Heparin 5000 units SQ TID (Preferred with Epidurals) *Enoxaparin/Lovenox 40 mg SQ daily (WT < 150 kg, CrCl > 30 mL/min) *Enoxaparin/Lovenox 30 mg SQ daily (WT < 150 kg, CrCl > 10-29 mL/min) *Enoxaparin/Lovenox 30 mg SQ BID (WT < 150 kg, CrCl > 30 mL/min) AND *Sequential Compression Device (SCD) Assessment and Plan Problem List: (1) Mental status alteration ICD Code: R41.82 - Mental status alteration Status: Acute (2) Memory loss ICD Code: R41.3 - Memory loss Status: Acute (3) Noncompliance ICD Code: Z91.19 - Noncompliance Status: Acute (4) Hypertension ICD Code: I10 - Hypertension Status: Acute (5) Non-compliance ICD Code: Z91.19 - Non-compliance Status: Acute (6) Neck pain ICD Code: M54.2 - Neck pain Status: Acute (7) Varicose vein ICD Code: I86.8 - Varicose vein Status: Acute (8) Alcohol abuse (9) Seizure disorder (10) Alcohol intoxication ICD Code: F10.129 - Alcohol abuse with intoxication, unspecified Status: Acute Assessment and Plan 57 yo male Seizures Noncompliant with meds Continue dilantin, monitor levels until therapeutic Neurocecks, seizure precautions EEG Consult neurology as need SCD/teds Discussed Condition With pt, nurse, ED physician Joseline London MD Sep 02, 2017 17:47
[2017-09-02] MEDS: SODIUM CHLOR 0.9% 1000 ML INJ 1,000 ML IV SCH (18:32)
[2017-09-02] MEDS: ENOXAPARIN SODIUM 40 MG/0.4 ML SYRINGE SQ SCH (18:52)
[2017-09-02] MEDS: SODIUM CHLORIDE 0.9% FLUSH 10 ML FLUSH IV FLUSH SCH (21:00)
[2017-09-02] MEDS: levETIRAcetam 500 MG TAB PO SCH (21:23)
[2017-09-02] MEDS: DOCUSATE SODIUM 50 MG/SENNA 8.6 MG TAB PO SCH (21:23)
[2017-09-03] MEDS: SODIUM CHLOR 0.9% 1000 ML INJ 1,000 ML IV SCH (02:32)
[2017-09-03 03:31] VITALS: BP 102/62; PULSE 58; RESP 18; TEMP 98.1; O2SAT 94
[2017-09-03 07:09] LABS: AUTOMATED NEUTROPHIL # 3.7 TH/MM3 (1.8-7.7); BASOPHIL % 0.7 % (0.0-2.0); EOSINOPHIL # 0.1 TH/MM3 (0-0.4); EOSINOPHIL % 2.1 % (0.0-4.0); HEMATOCRIT 48.7 % (39.0-51.0); HEMOGLOBIN 16.8 GM/DL (13.0-17.0); LYMPH % 24.8 % (9.0-44.0); LYMPHOCYTE # 1.4 TH/MM3 (1.0-4.8); MEAN CELL VOLUME 89.7 FL (80.0-100.0); MEAN CORPUSCULAR HEMOGLOBIN 30.9 PG (27.0-34.0); MEAN CORPUSCULAR HGB CONC 34.5 % (32.0-36.0); MEAN PLATELET VOLUME 7.7 FL (7.0-11.0); MONO % 5.9 % (0.0-8.0); MONOCYTE # 0.3 TH/MM3 (0-0.9); NEUT % 66.5 % (16.0-70.0); PLATELET COUNT 182 TH/MM3 (150-450); RED BLOOD COUNT 5.42 MIL/MM3 (4.50-5.90); RED CELL DISTRIBUTION WIDTH 15.7 % (11.6-17.2); WHITE BLOOD COUNT 5.5 TH/MM3 (4.0-11.0)
[2017-09-03 07:36] LABS: BICARBONATE 23.6 MEQ/L (21.0-32.0); CALCIUM 8.2 MG/DL (8.5-10.1); CREATININE 0.82 MG/DL (0.60-1.30)
[2017-09-03 08:20] VITALS: BP 107/63; PULSE 58; RESP 18; TEMP 98.4; O2SAT 97
[2017-09-03] MEDS: levETIRAcetam 500 MG TAB PO SCH ×2 (08:37→22:31)
[2017-09-03] MEDS: DOCUSATE SODIUM 50 MG/SENNA 8.6 MG TAB PO SCH ×2 (08:37→21:00)
[2017-09-03] MEDS: SODIUM CHLORIDE 0.9% FLUSH 10 ML FLUSH IV FLUSH SCH ×2 (08:38→22:31)
[2017-09-03] MEDS ORDERED: CYCLOBENZAPRINE HCL 10 MG TAB PO ONE (10:30)
[2017-09-03] MEDS ORDERED: IBUPROFEN 400 MG TAB PO PRN (10:30)
[2017-09-03] MEDS ORDERED: IBUPROFEN 600 MG TAB PO ONE (10:30)
--- NOTE | 2017-09-03 11:09 | HHI.PR ---
Subjective Remarks F/u encephalopathy. Patient is awake and oriented complains of lower back pain with no numbness or radiation. No headache, dizziness or focal weakness. Discussed with nursing Objective Vitals Vital Signs Date Time Temp Pulse Resp B/P (MAP) Pulse Ox O2 Delivery O2 Flow Rate FiO2 09/03/17 08:20 98.4 58 18 107/63 (78) 97 09/03/17 03:31 98.1 58 18 102/62 (75) 94 09/02/17 21:33 97.8 64 18 121/66 (84) 96 09/02/17 20:04 96 09/02/17 20:00 59 09/02/17 20:00 Room Air 09/02/17 20:00 98.4 72 18 133/76 (95) 98 09/02/17 17:18 96.9 88 20 133/78 (96) 96 09/02/17 15:27 110 22 174/77 (109) 95 Nasal Cannula 3.00 09/02/17 14:39 92 154/63 (93) 09/02/17 14:22 98.7 96 17 189/91 (123) I/O 09/02/17 09/02/17 09/02/17 09/03/17 09/03/17 09/03/17 07:00 15:00 23:00 07:00 15:00 23:00 Intake Total 1000 ml Balance 1000 ml Intake IV Total 1000 ml Result Diagram: 09/03/17 0610 09/03/17 0610 Objective Remarks GENERAL: This is a well-nourished, well-developed patient, in no apparent distress. SKIN: No rashes, ecchymoses or lesions. Cool and dry. CARDIOVASCULAR: Regular rate and rhythm without murmurs, gallops, or rubs. RESPIRATORY: Clear to auscultation. Breath sounds equal bilaterally. No wheezes , rales, or rhonchi. GASTROINTESTINAL: Abdomen soft, non-tender, nondistended. No guarding. MUSCULOSKELETAL: Extremities without clubbing, cyanosis, or edema. No joint tenderness, effusion, or edema noted. No calf tenderness. Negative Homans sign bilaterally. NEUROLOGICAL: Awake and alert. Cranial nerves II through XII intact. Motor and sensory grossly within normal limits. Five out of 5 muscle strength in all muscle groups. Slurred speech hx TBI Procedures none A/P Problem List: (1) Memory loss ICD Code: R41.3 - Memory loss Status: Acute (2) Hypertension ICD Code: I10 - Hypertension Status: Acute (3) Non-compliance ICD Code: Z91.19 - Non-compliance Status: Acute (4) Alcohol abuse (5) Seizure disorder (6) Alcohol intoxication ICD Code: F10.129 - Alcohol abuse with intoxication, unspecified Status: Acute Assessment and Plan 57 yo male with history of TBI Seizures. Noncompliant with meds. Counseled. Continue Keppra history of intolerance to Dilantin. Seizure precautions follow-up EEG Muscular skeletal pain. NSAIDs and heat pads. DVT prophylaxis with SCD/teds PT has recommended rehab will consult case management Discharge Planning Will contact next of kin to clarify home situation Michele James MD Sep 03, 2017 11:09
[2017-09-03 12:07] VITALS: BP 107/65; PULSE 57; RESP 18; TEMP 98.5; O2SAT 97
[2017-09-03 15:57] VITALS: BP 118/56; PULSE 53; RESP 18; TEMP 97.9; O2SAT 98
[2017-09-03] MEDS: ENOXAPARIN SODIUM 40 MG/0.4 ML SYRINGE SQ SCH (18:00)
[2017-09-03 20:23] VITALS: BP 119/59; PULSE 57; RESP 18; TEMP 97.9; O2SAT 96
[2017-09-03] MEDS ORDERED: LORazepam 2 MG/ML VIAL IV PUSH PRN (22:15)
[2017-09-04 00:33] VITALS: BP 131/72; PULSE 59; RESP 18; TEMP 98; O2SAT 96
[2017-09-04 05:31] VITALS: BP 141/68; PULSE 52; RESP 18; TEMP 98.1; O2SAT 96
--- NOTE | 2017-09-04 07:06 | HHI.PR ---
Subjective Remarks Follow-up seizure. No recurrence. Tolerating Keppra. He does not want to go to rehab. Discussed with PT, patient can be discharged home. 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 Objective Vitals Vital Signs Date Time Temp Pulse Resp B/P (MAP) Pulse Ox O2 Delivery O2 Flow Rate FiO2 09/04/17 05:31 98.1 52 18 141/68 (92) 96 09/04/17 00:33 98.0 59 18 131/72 (91) 96 09/03/17 20:23 97.9 57 18 119/59 (79) 96 09/03/17 15:57 97.9 53 18 118/56 (76) 98 09/03/17 12:07 98.5 57 18 107/65 (79) 97 09/03/17 08:20 98.4 58 18 107/63 (78) 97 09/03/17 08:00 Room Air I/O 09/03/17 09/03/17 09/03/17 09/04/17 09/04/17 09/04/17 07:00 15:00 23:00 07:00 15:00 23:00 Intake Total 250 ml Balance 250 ml Intake Oral 250 ml Result Diagram: 09/03/17 0610 09/03/17 0610 Objective Remarks GENERAL: This is a well-nourished, well-developed patient, in no apparent distress. SKIN: No rashes, ecchymoses or lesions. Cool and dry. CARDIOVASCULAR: Regular rate and rhythm without murmurs, gallops, or rubs. RESPIRATORY: Clear to auscultation. Breath sounds equal bilaterally. No wheezes , rales, or rhonchi. GASTROINTESTINAL: Abdomen soft, non-tender, nondistended. No guarding. MUSCULOSKELETAL: Extremities without clubbing, cyanosis, or edema. No joint tenderness, effusion, or edema noted. No calf tenderness. Negative Homans sign bilaterally. NEUROLOGICAL: Awake and alert. Cranial nerves II through XII intact. Motor and sensory grossly within normal limits. Five out of 5 muscle strength in all muscle groups. Slurred speech hx TBI Procedures none A/P Problem List: (1) Memory loss ICD Code: R41.3 - Memory loss Status: Acute (2) Hypertension ICD Code: I10 - Hypertension Status: Acute (3) Non-compliance ICD Code: Z91.19 - Non-compliance Status: Acute (4) Alcohol abuse (5) Seizure disorder (6) Alcohol intoxication ICD Code: F10.129 - Alcohol abuse with intoxication, unspecified Status: Acute Assessment and Plan 57 yo male with history of TBI Seizures. Noncompliant with meds. Counseled. Continue Keppra history of intolerance to Dilantin. Seizure precautions Musculoskeletal pain. Improving. NSAIDs and heat pads. DVT prophylaxis with SCD/teds Discharge Planning Discharge patient to home Condition on discharge: Improved Regular Diet as tolerated [place] activity Rx written: Clotilde Follow-up with primary care physician Michele James MD Sep 04, 2017 07:06
[2017-09-04 08:33] VITALS: BP 130/60; PULSE 68; RESP 20; TEMP 98.2; O2SAT 98
[2017-09-04] MEDS: levETIRAcetam 500 MG TAB PO SCH (08:57)
[2017-09-04] MEDS: DOCUSATE SODIUM 50 MG/SENNA 8.6 MG TAB PO SCH (08:57)
[2017-09-04] MEDS: SODIUM CHLORIDE 0.9% FLUSH 10 ML FLUSH IV FLUSH SCH (08:57)
[2017-09-04] MEDS ORDERED: LEVE500 PO (10:52)
--- NOTE | 2017-09-04 10:54 | HHI.DCPOC ---
Discharge Care Plan Diagnosis: (1) Seizure disorder Goals to Promote Your Health * To prevent worsening of your condition and complications * To maintain your health at the optimal level Directions to Meet Your Goals Take your medications as prescribed Follow your dietary instruction Follow activity as directed Keep your appointments as scheduled Take your immunizations and boosters as scheduled If your symptoms worsen call your PCP, if no PCP go to Urgent Care Center or Emergency Room Smoking is Dangerous to Your Health. Avoid second hand smoke Call the 24-hour hour crisis hotline for domestic abuse at Cassy Brooks PA-C Sep 04, 2017 10:54
[2017-09-04 12:00] VITALS: BP 128/62; PULSE 70; RESP 18; TEMP 98.2; O2SAT 96
== END 2017-09-04 15:47 | disposition home or self-care (01) ==
LOC: NEPD 14:14 → NEDA 16:32 → NEPGCP 21:07
PROVIDERS: ADMIT Internal Medicine; ATTEND Internal Medicine
DX: R41.82 Altered mental status, unspecified (principal); R41.3 Other amnesia; F10.129 Alcohol abuse with intoxication, unspecified; I86.8 Varicose veins of other specified sites; M54.2 Cervicalgia; M79.1 Myalgia; M54.5 Low back pain; R00.0 Tachycardia, unspecified; G93.40 Encephalopathy, unspecified; I10 Essential (primary) hypertension; M19.042 Primary osteoarthritis, left hand; M19.041 Primary osteoarthritis, right hand; M19.072 Primary osteoarthritis, left ankle and foot; M19.071 Primary osteoarthritis, right ankle and foot; Z91.14 Patient's other noncompliance with medication regimen; Z87.820 Personal history of traumatic brain injury
CPT/HCPCS: 80048; 80053; 80177; 80185; 80307; 82550; 85025; 96361; 96365; 96375; 97116; 97161; 99285; G0378; G8987; G8988; J1165; J1650; J2060; J7030